=== PATIENT | male | born 1970 | race Caucasian/White ===

== ENCOUNTER 2017-06-29 12:51 | Emergency (ER) | payer BC, OTHER ==
[2017-06-29] MEDS ORDERED: Morphine 4 MG/ML Carpuject ONE ×2 (13:16→14:30)
[2017-06-29] MEDS ORDERED: Ondansetron HCl/PF 4 MG/2 ML Vial ONE (13:16)
[2017-06-29 13:48] LABS: #Basophils 0.1 thou/uL (0.0-0.2); #Eosinphils 0.1 thou/uL (0.0-0.7); #Lymphocytes 1.4 thou/uL (1.20-3.40); #Monocytes 0.4 thou/uL (0.11-0.59); #Neutrophils 5.3 thou/uL (1.40-6.50); %Basophils 1.1 % (0.0-1.0); %Eosinophils 1.2 % (0.0-10.0); %Lymphocytes 19.1 % (21.0-51.0); %Monocytes 6.1 % (0.0-10.0); Bilirubin Negative (Negative); Blood, Urine Negative (Negative); Glucose, Urine (Dipstick) Negative (Negative); Ketone, Urine Negative (Negative); Mean Platelet Volume 7.1 fL (7.4-10.4); Nitrite Negative (Negative); Protein, Urine (Dipstick) Negative (Neg-Trace); Red Blood Cell (RBC) Count 5.99 mill/uL (4.70-6.10); Urobilinogen 0.2 mg/dL (0.2-1.0); White Blood Cell (WBC) Count 7.3 thou/uL (4.8-10.8)
[2017-06-29] MEDS ORDERED: Clindamycin/D5W 600 mg/50 ml Premix Bag ONE (13:51)
[2017-06-29 14:07] LABS: ALT (SGPT) 20 U/L (8-55); AST (SGOT) 19 U/L (5-34); Alkaline Phosphatase 61 U/L (40-150); Anion Gap 15 mmol/L (10-20); BUN (Urea Nitrogen) 12 mg/dL (8.9-20.6); Bilirubin, Total 0.9 mg/dL (0.2-1.2); Calc. Creatinine Clearance 0 mL/min (70-130); Calcium 9.8 mg/dL (7.8-10.44); Carbon Dioxide 23 mmol/L (22-29); Chloride 106 mmol/L (98-107); Estimated GFR-MDRD 69; Globulin 2.9 g/dL (2.4-3.5); Protein, Total 7.7 g/dL (6.0-8.3)
== END 2017-06-29 14:59 | disposition home or self-care (01) ==
LOC: SCSER 12:51
DX: N48.22 Cellulitis of corpus cavernosum and penis (principal)
CPT/HCPCS: 80053; 81003; 85025; 96365; 96375; 96376; J2270; J2405; J3490

== ENCOUNTER 2021-07-09 16:06 | Outpatient (CLI) | payer BC | END 2021-07-09 16:07 | disposition home or self-care (01) | LOC: SCSMRI 16:06 | PROVIDERS: ATTEND Orthopaedic Surgery | DX: M23.91 Unspecified internal derangement of right knee (principal); M67.461 Ganglion, right knee; R60.0 Localized edema; M70.41 Prepatellar bursitis, right knee; S83.241A Other tear of medial meniscus, current injury, right knee, initial encounter ==